=== PATIENT | male | born 1985 | race Caucasian/White ===

== ENCOUNTER 2018-03-20 09:34 | Emergency (ER) | payer SELFPAY ==
--- NOTE | 2018-03-20 09:46 | EDPHY ---
H & P Time Seen by Provider: 03/20/18 09:45 HPI/ROS: CHIEF COMPLAINT: Testicle pain HISTORY OF PRESENT ILLNESS: 32-year-old male via private vehicle complaining of 1 month of left testicle pain worse in the past 1 week. No trauma. No new sexual partners. No urethral discharge. No dysuria hematuria increased frequency. No abdominal pain. No perineal pain. No pain with defecation. No unexpected weight loss. No fever or chills. No adenopathy. PRIMARY CARE PROVIDER: Jimmy REVIEW OF SYSTEMS: 10 systems reviewed and negative with the exception of the elements mentioned in the history of present illness PAST MEDICAL & SURGICAL HISTORY: No pertinent medical or surgical history SOCIAL HISTORY: PHYSICAL EXAM (Prior to examination, patient consented to physical exam, hands were washed and my usual and customary physical exam procedures followed) 1) GENERAL: Well-developed, well-nourished, alert and oriented. Appears nontoxic 2) HEAD: Normocephalic, atraumatic 3) HEENT: Sclera anicteric. 4) NECK: Full range of motion, no meningeal signs. 5) LUNGS: Clear auscultation bilaterally, no wheezes, no rhonchi, no retractions. 6) HEART: Regular rate and rhythm, no murmur, no heave, no gallop. 7) ABDOMEN: No guarding, no rebound, no focal tenderness, negative McBurney's, negative Huang's, negative Rovsing's, negative peritoneal sign, 8) MUSCULOSKELETAL: Moving all extremities, no focal areas of tenderness, no obvious trauma. No peripheral edema or discoloration. 9) BACK: No CVA tenderness, no midline vertebral tenderness, no fluctuance, no step-off, no obvious trauma, no visual or palpable abnormality. 10) SKIN: No rash, no petechiae. 11) : Circumcised. left testicle firm, tender mass. No overlying scrotal changes. Perineum nontender. No crepitus. No signs of cellulitis or Julieta' s gangrene. No inguinal mass.. DIFFERENTIAL DIAGNOSIS: Testicular pain including but not limited to epididymitis, orchitis, malignancy, referred pain from kidney stone, inguinal hernia, and torsion of the testicle. Constitutional: Initial Vital Signs Temperature (C) 36.9 C 03/20/18 09:48 Heart Rate 64 03/20/18 09:48 Respiratory Rate 16 03/20/18 09:48 Blood Pressure 118/90 H 03/20/18 09:48 O2 Sat (%) 96 03/20/18 09:48 O2 Delivery Mode Room Air Allergies/Adverse Reactions: No Known Allergies Allergy (Unverified 03/21/12 13:27) Home Medications: Medication Instructions Recorded Hydrocodone Bit/Acetaminophen 1 - 2 tab PO Q4-6PRN PRN #11 tab 03/21/12 [Vicodin 5/500] Miscellaneous Medical Supply [NO 1 ea MISC AD 03/21/12 HOME MEDS] Penicillin V Potassium [Pen Vk] 500 mg PO TID #21 tab 03/21/12 Hydrocodone/APAP 5/325 [[place] 1 tab PO Q6 PRN #7 tab 03/20/18 5/325 (RX)] Medical Decision Making - Diagnostics Imaging Results: Imaging Impressions Testicular Ultrasound 03/20/18 09:45 Impression: 1. There is a 2.7 cm complex solid mass occupying the medial midpole of the left testis, worrisome for malignancy. Urologic consultation is suggested. 2. Query left epididymitis. 3. Small left hydrocele. 4. Bilateral testicular microlithiasis. Findings were discussed with Vero Dupont PA-C at 11:18, on 03/20/2018. Images reviewed myself ED Course/Re-evaluation: 11:25 a.m.: Discussion with staff radiologist regarding the patient's ultrasound showing a 2.7 cm left testicular mass concerning for possible malignancy. Will consult with Urology. I discussed the case with secondary supervising physician Dr. Den Hayden at this time. Noon: Consultation with Dr. Christine Bland recommends laboratory studies including HCG, LDH, alpha-fetoprotein be ordered on the patient as well as staging CT scan . Today is Thursday. Dr. Bland would like to see the patient in the afternoon on Thursday and will plan on more than likely surgery on Thursday. 3:54 p.m.: Patient CT imaging is completed. He will does not need to wait for the results as these can be followed up by Dr. Christine Bland at his appointment on Thursday. Patient feels comfortable being discharged. Usual customary discharge precautions instructions were provided. - Data Points Laboratory Results: Laboratory Results 03/20/18 12:05 03/20/18 12:05 03/20/18 03/20/18 03/20/18 12:05 12:05 12:05 WBC 11.12 10^3/uL H 10^3/uL (3.80-9.50) RBC 5.15 10^6/uL 10^6/uL (4.40-6.38) Hgb 17.0 g/dL g/dL (13.7-17.5) Hct 48.0 % % (40.0-51.0) MCV 93.2 fL fL (81.5-99.8) MCH 33.0 pg pg (27.9-34.1) MCHC 35.4 g/dL g/dL (32.4-36.7) RDW 11.9 % % (11.5-15.2) Plt Count 228 10^3/uL 10^3/uL (150-400) MPV 10.4 fL fL (8.7-11.7) Neut % (Auto) 86.6 % H % (39.3-74.2) Lymph % (Auto) 9.1 % L % (15.0-45.0) [place] % (Auto) 3.7 % L % (4.5-13.0) Eos % (Auto) 0.0 % L % (0.6-7.6) Baso % (Auto) 0.2 % L % (0.3-1.7) Nucleat RBC Rel Count 0.0 % % (0.0-0.2) Absolute Neuts (auto) 9.63 10^3/uL H 10^3/uL (1.70-6.50) Absolute Lymphs (auto) 1.01 10^3/uL 10^3/uL (1.00-3.00) Absolute Monos (auto) 0.41 10^3/uL 10^3/uL (0.30-0.80) Absolute Eos (auto) 0.00 10^3/uL L 10^3/uL (0.03-0.40) Absolute Basos (auto) 0.02 10^3/uL 10^3/uL (0.02-0.10) Absolute Nucleated RBC 0.00 10^3/uL 10^3/uL (0-0.01) Immature Gran % 0.4 % % (0.0-1.1) Immature Gran # 0.05 10^3/uL 10^3/uL (0.00-0.10) Sodium 139 mEq/L mEq/L (135-145) Potassium 4.4 mEq/L mEq/L (3.3-5.0) Chloride 105 mEq/L mEq/L (97-110) Carbon Dioxide 24 mEq/l mEq/l (22-31) Anion Gap 10 mEq/L mEq/L (6-14) BUN 9 mg/dL mg/dL (7-23) Creatinine 0.6 mg/dL L mg/dL (0.7-1.3) Estimated GFR > 60 Glucose 118 mg/dL H mg/dL (70-100) Calcium 9.8 mg/dL mg/dL (8.5-10.4) Lactate Dehydrogenase 608 IU/L IU/L (313-618) Alpha Fetoprotein Pending Tumor Marker HCG Pending Beta HCG, Quant < 2.39 mIU/mL mIU/mL (0.00-4.83) Urine Color Urine Appearance Urine pH Ur Specific [place] Urine Protein Urine Ketones Urine Blood Urine Nitrate Urine Bilirubin Urine Urobilinogen Ur Leukocyte Esterase Urine RBC Urine WBC Ur Epithelial Cells Hyaline Casts Urine Mucus Urine Glucose C.trachomatis RNA (TMA) N.gonorrhoeae RNA (TMA) Serum Collection Date Pending Gest Age at Draw (Scan) Pending Gest Age at Draw (Dates) Pending Gestational Age Used Pending Est Delivery Date (Scan Pending Maternal Date of Pending Maternl Age at Due Date Pending Maternal Race Pending Maternal Weight Pending Maternal Diabetes Pending Patient Smoking Status Pending Number of Fetuses Pending AFP Provider Phone # Pending AFP Initial or Repeat Pending Prev NT Defect Preg Pending AFP MoM Pending AFP Result Summary Pending Maternal AFP Interp Pending AFP Recommend Followup Pending Pat or Father NTD Pending NTD Risk Assessment Pending AFP # of Chorions Pending Maternal Scrn Comment Pending 03/20/18 03/20/18 10:00 10:00 WBC RBC Hgb Hct MCV MCH MCHC RDW Plt Count MPV Neut % (Auto) Lymph % (Auto) [place] % (Auto) Eos % (Auto) Baso % (Auto) Nucleat RBC Rel Count Absolute Neuts (auto) Absolute Lymphs (auto) Absolute Monos (auto) Absolute Eos (auto) Absolute Basos (auto) Absolute Nucleated RBC Immature Gran % Immature Gran # Sodium Potassium Chloride Carbon Dioxide Anion Gap BUN Creatinine Estimated GFR Glucose Calcium Lactate Dehydrogenase Alpha Fetoprotein Tumor Marker HCG Beta HCG, Quant Urine Color YELLOW Urine Appearance CLEAR Urine pH 5.0 (5.0-7.5) Ur Specific [place] 1.020 (1.002-1.030) Urine Protein NEGATIVE (NEGATIVE) Urine Ketones NEGATIVE (NEGATIVE) Urine Blood NEGATIVE (NEGATIVE) Urine Nitrate NEGATIVE (NEGATIVE) Urine Bilirubin NEGATIVE (NEGATIVE) Urine Urobilinogen NEGATIVE EU EU (0.2-1.0) Ur Leukocyte Esterase NEGATIVE (NEGATIVE) Urine RBC NONE SEEN /hpf /hpf (0-3) Urine WBC 1-3 /hpf /hpf (0-3) Ur Epithelial Cells NONE SEEN /lpf /lpf (NONE-1+) Hyaline Casts 5-15 /lpf /lpf (0-1) Urine Mucus TRACE /lpf /lpf (NONE-1+) Urine Glucose NEGATIVE (NEGATIVE) C.trachomatis RNA (TMA) Pending N.gonorrhoeae RNA (TMA) Pending Serum Collection Date Gest Age at Draw (Scan) Gest Age at Draw (Dates) Gestational Age Used Est Delivery Date (Scan Maternal Date of Maternl Age at Due Date Maternal Race Maternal Weight Maternal Diabetes Patient Smoking Status Number of Fetuses AFP Provider Phone # AFP Initial or Repeat Prev NT Defect Preg AFP MoM AFP Result Summary Maternal AFP Interp AFP Recommend Followup Pat or Father NTD NTD Risk Assessment AFP # of Chorions Maternal Scrn Comment Medications Given: Discontinued Medications Fentanyl (Sublimaze) 100 mcg IVP EDNOW ONE Stop: 03/20/18 12:01 Last Admin: 03/20/18 12:11 Dose: 100 mcg Oxycodone/Acetaminophen (Percocet 5/325) 2 tab PO EDNOW ONE Stop: 03/20/18 14:23 Last Admin: 03/20/18 14:23 Dose: 2 tab Departure - Departure Disposition: Home, Routine, Self-Care Clinical Impression: Testicular mass Condition: Good Instructions: Testicle Pain (ED) Additional Instructions: Return to the ER if you develop fevers, worsening pain or any other symptoms that concern you. Referrals: Raheem Bland MD [Medical Doctor] - 03/22/18 (Thursday morning at 9:[address] Christine Bland's office. Tell his staff that we spoke and he would like to see you in the office later that day.) Prescriptions: Hydrocodone/APAP 5/325 [[place] 5/325 (RX)] 1 tab PO Q6 PRN #7 tab PRN Reason: Pain, Severe
[2018-03-20] MEDS ORDERED: fentaNYL 100 MCG/2 ML INJ IVP ONE (12:00)
[2018-03-20 12:13] LABS: PLATELET COUNT 228 10^3/uL (150-400)
[2018-03-20] MEDS ORDERED: OXYCODONE/APAP 5/325 TAB ONE (14:21)
[2018-03-20] MEDS ORDERED: OXYCODONE/APAP 5/325 TAB PO ONE (14:22)
[2018-03-20] MEDS ORDERED: IOPAMIDOL (ISOVUE-300) 100 ML BTL ONE (15:00)
[2018-03-20 16:00] VITALS: BP 127/71
[2018-03-22 12:50] LABS: GC AMPLIFICATION GENPROBE NEGATIVE (NEGATIVE)
== END 2018-03-20 15:59 | disposition home or self-care (01) ==
LOC: EDSEX 09:34
DX: N50.9 Disorder of male genital organs, unspecified (principal); N43.3 Hydrocele, unspecified
CPT/HCPCS: 82105-90; 84702-90; 96374; J3010; Q9967

== ENCOUNTER → 2018-06-11 | Day surgery (SDC) | payer OTHER | LOC: FIMAGING 10:44 | PROVIDERS: ATTEND Radiology Diagnostic Radiology | PROC: 02HV33Z Insertion of Infusion Device into Superior Vena Cava, Percutaneous Approach (ICD-10-PCS; principal; 2018-06-11) | DX: C62.12 Malignant neoplasm of descended left testis (principal) | CPT/HCPCS: 36573; 77001; C1751 ==

== ENCOUNTER 2018-06-22 09:39 | Emergency (ER) | payer OTHER ==
--- NOTE | 2018-06-22 10:08 | EDPHY ---
H & P Time Seen by Provider: 06/22/18 10:08 HPI/ROS: CHIEF COMPLAINT: PICC line removal HISTORY OF PRESENT ILLNESS: Patient is a 32-year-old male with history of testicular cancer here requesting removal of PICC line. He had a PICC line placed for chemotherapy. He is followed by Dr. Buchanan for his testicular cancer. Reports that [address] Bland removed the testicle and he was on chemotherapy for preventative measures. He did develop some pulmonary "inflammation" and Dr. Buchanan was recommending further treatment with chemotherapy but decision was made with Dr. Buchanan according to the patient that he had the option of pulling the PICC line and doing a "aggressive 3 month watch "with re- evaluation by CT scan in 3 months to consider further chemotherapy or other treatments. Patient would like to PICC line removed and will follow up with Dr. Buchanan. Denies any fever, chills, shortness of breath, hemoptysis, leg swelling. He reports he was seen by pulmonology last week and they reported that he had "amazing lungs "that there were no concerns. REVIEW OF SYSTEMS: Constitutional: No fever, no chills. Eyes: No discharge. ENT: No sore throat. Cardiovascular: No chest pain, no palpitations. Respiratory: No cough, no shortness of breath. Gastrointestinal: No abdominal pain, no vomiting. Genitourinary: No hematuria. Musculoskeletal: No back pain. Skin: No rashes. Neurological: No headache. Smoking Status: Current every day smoker Physical Exam: General Appearance: Alert and no distress. ENT: normal dentition. No tonsillar exudate or swelling. Eyes: Pupils equal and round no injection. Respiratory: Chest is nontender, lungs are clear to auscultation. Cardiac: regular rate and rhythm. No lower extremity edema Gastrointestinal: Abdomen is soft and nontender, no masses, bowel sounds normal. Musculoskeletal: Neck is supple and nontender. Extremities have full range of motion and are nontender without deformity Skin: No rashes or lesions. PICC line in place to right upper extremity Neuro: Cranial nerves grossly intact. Ambulatory. Constitutional: Initial Vital Signs Temperature (C) 36.6 C 06/22/18 09:46 Heart Rate 93 06/22/18 09:46 Respiratory Rate 16 06/22/18 09:46 Blood Pressure 102/70 06/22/18 09:46 O2 Sat (%) 97 02/12/19 09:46 O2 Delivery Mode Room Air Allergies/Adverse Reactions: No Known Allergies Allergy (Unverified 03/21/12 13:27) Home Medications: Medication Instructions Recorded Hydrocodone Bit/Acetaminophen 1 - 2 tab PO Q4-6PRN PRN #11 tab 03/21/12 [Vicodin 5/500] Miscellaneous Medical Supply [NO 1 ea MISC AD 03/21/12 HOME MEDS] Penicillin V Potassium [Pen Vk] 500 mg PO TID #21 tab 03/21/12 Hydrocodone/APAP 5/325 [[place] 1 tab PO Q6 PRN #7 tab 03/20/18 5/325 (RX)] Medical Decision Making ED Course/Re-evaluation: Patient here for PICC line removal. According to the patient has had an extensive conversation about removal of PICC line with Dr. Buchanan and they have agreed with plan to remove the PICC line and observing for the next [address] scan in 3 months. PICC line was removed without complication he was observed for 30 min after this happened and the bleeding was well controlled and there were no complications. Indications for return to the emergency room were discussed. He will follow up with Dr. Buchanan for further management and observation. Departure - Departure Disposition: Home, Routine, Self-Care Clinical Impression: PIC line (peripherally inserted central catheter) removal Condition: Good Instructions: Peripherally Inserted Central Catheters and Midline Catheters in... (DC) Additional Instructions: Follow-up with Dr. Buchanan for further management and or discussion of observation for testicular cancer Referrals: Emilie Buchanan MD [Primary Care Provider] - As per Instructions
[2018-06-22 11:05] VITALS: BP 101/69
== END 2018-06-22 11:02 | disposition home or self-care (01) ==
DX: Z45.2 Encounter for adjustment and management of vascular access device (principal); C62.90 Malignant neoplasm of unspecified testis, unspecified whether descended or undescended